=== PATIENT | male | born 2005 | race Caucasian/White ===

== ENCOUNTER 2024-11-25 20:49 | Emergency (ER) | payer MEDICAID, SELFPAY ==
--- OUTSIDE RECORDS SUMMARY | 2021-04-22 06:00 | XMS_ITS | Continuity of Care Document ---
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 Name Role Phone Unavailable Unavailable Unavailable Medications Medication Instructions Dosage Effective Dates (start - stop) Status Comments fluoxetine 10 mg tablet - Ac tive propranolol 20 mg tablet - A ctive methocarbamol 750 mg tablet - Active naproxen 500 mg tablet - Act bianca Procedures Procedure Date INTERMEDIATE OUTPT CONSULT ECG GLOBAL ECHO, TT W/SPECTRAL AND COLOR DOPPLER De ECHO, TT W/SPECTRAL AND COLOR DOPPLER De Advance Directives Directive Yes / No Effective Date File Name Resuscitation Not Answered N/A N/A Life Support Not Answered N/A N/A Intubation Not Answered N/A N/A Antibiotics Not Answered N/A N/A IV Fluid Support Not Answered N/A N/A Tube Feed Not Answered N/A N/A Other Directive N/A N/A WARNING:The information contained in this section is historical and is provided for information only and does not constitute a legal document or any assurance that the information is still accurate. Please verify the information with the wilson of the legal document before using it for clinical purposes. Encounters Encounter Description Practice Location Reason(s) For Visit Diagnoses Date Provider Providers Copied on Encounter INTERMEDIATE OUTPT CONSULT [facility], [address], [place], [address], [place] tel:[phone] [employer] [facility] PalpitationsBe nign Essential HypertensionOb esity (morbid)BMI Pediatric, 95% and above for age No Information Referring Provider: KELLI PERALES, [address] [place], [address]. tel:[phone] Family History Family Member Type Diagnosis Age At Onset No Information Payers Payer name Insurance type Covered constitution party ID Authoriza tiiain(s) [facility] [id number] Social History Type Description Quantity Date Captured Comments Alcohol Use Details Unknown Caffeine Use Details Unknown Tobacco Use Status No Information Smoking Status No Information Sex Male Vital Signs Date / Time: Height Weight BMI Pulse Rate Blood Pressure Temperature Respiratory Rate Body Surface Area Head Circumference BMI percentile Pulse Ox Inhaled Ox 12:27 PM 69.00 in 108.862 kg (240.00 lbs) 35.5 0 kg/m eter (2) 24 /min 2.30 meter(2) 99 Chief Complaint And Reason For Visit No Information History Of Present Illness Encounter Date Complaint History Of Prese nt Illness No Information Instructions Date Instruction Additional Infor mation No Information Assessments Type Assessment Date No Information
[2024-11-25 20:49] VITALS: BP 135/82; PULSE 73; RESP 18; TEMP 36.6; O2SAT 98; BMI 32.6
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
--- NOTE | 2024-11-25 20:58 | XRR_ITS ---
PROCEDURE INFORMATION: Exam: XR Abdomen Exam date and time: 11/25/2024 9:11 PM Age: 19 years old Clinical indication: Constipation TECHNIQUE: Imaging protocol: Radiologic exam of the abdomen. Views: Frontal supine view of the abdomen. 1 View. COMPARISON: No relevant prior studies available. FINDINGS: Gastrointestinal tract: Large volume of stool throughout the colon, consistent with provided history. No bowel dilation. No obstruction. No pneumatosis. No free air. Bones/joints: Unremarkable. XR/XR KUB 24068 IMPRESSION: Large colonic stool burden consistent with provided history of constipation.
--- NOTE | 2024-11-25 21:06 | W.ED.ABDPA2 ---
HPI - Abdominal Pain General: Chief Complaint: Abdominal Pain Stated Complaint: abd pain, constipated Time Seen by Provider: 11/25/24 20:59 Source: patient Mode of arrival: ambulatory Limitations: no limitations History of Present Illness: 19-year-old male states has had a history of constipation states he has not had a bowel movement in 4 days states he feels like he has a ball that he is having hard time passing. Denies any severe abdominal pain denies any vomiting he has tried Colace with no relief. Associated Symptoms: Reports constipation; Denies chills, diarrhea, fever(s), nausea and vomiting Related Data Previous Rx's ?Medication ?Instructions ?Recorded polyethylene glycol 3350 17 gram 17 g PO DAILY PRN constipation #14 11/25/24 oral powder packet (Miralax) ea Review of Systems Const: Denies: fever(s), chills, body aches or change in appetite ENMT: Denies: throat pain or dental pain Card: Denies: chest pain Resp: Denies: dyspnea GI: Reports: constipation; Denies: abdominal pain, nausea, vomiting or diarrhea Musc: Denies: neck pain or back pain Skin/Breast: Denies: rash Neuro: Denies: headache(s) Physical Exam Const: COMMON NORMALS: no acute distress, patient oriented x3 and healthy appearing HENMT: COMMON NORMALS: normocephalic and atraumatic HEAD & SCALP: normocephalic and atraumatic Eye: COMMON NORMALS: conjunctivae normal CONJUNCTIVA: Yes conjunctivae normal Neck/C-Spine: COMMON NORMALS: full ROM and supple Chest: COMMONS NORMALS: normal inspection of the chest Resp: COMMON NORMALS: normal respiratory effort Cardio: COMMON NORMALS: regular rate RATE: regular rate GI: COMMON NORMALS: Normal to inspection, nondistended, normoactive bowel sounds present, Soft to palpation, non-tender and no masses PALPATION: Yes Soft to palpation Extremity: COMMON NORMALS: normal to inspection and full ROM Neuro: COMMON NORMALS: patient oriented x3, moves all extremities and no focal motor deficits Psych: COMMON NORMALS: mental status grossly normal, Normal thought process present and cooperative THOUGHT PROCESS: Normal thought process present Skin: COMMON NORMALS: no rashes or lesions noted and no wounds GENERAL SKIN EXAM: no rashes or lesions noted Course Vital Signs: Vital signs: Vital Signs Temperature 97.9 F 11/25/24 20:49 Pulse Rate 73 11/25/24 20:49 Respiratory Rate 18 11/25/24 20:49 Blood Pressure 135/82 11/25/24 20:49 Pulse Oximetry 98 11/25/24 20:49 Oxygen Delivery Me thod Room Air 11/25/24 20:49 MDM - Abdominal Pain Medical Decision Making Patient presents for constipation no signs of obstruction did give him suppository along with lactulose we will discharge him with prescription for MiraLAX if he is unable to have a bowel movement he is to return he understands agrees plan Medical Records I reviewed the patient's medical records. XR interpretation done by ED provider, pending radiology final review ED provider radiology interpretation(s): X-ray KUB constipation Discharge Plan Discharge Patient Disposition: Home Clinical Impression: Constipation Condition: Stable Prescriptions: New polyethylene glycol 3350 [Miralax] 17 gram powder in packet 17 g PO DAILY PRN (Reason: constipation) Qty: 14 0RF Discharge Orders: Discharge ED (Routine); Ordered 11/25/24 Ordered By: Wayne Loco Discharge Diet: Advance as tolerated Discharge Activity: Resume usual activity Patient Instructions: Constipation (ED) Print Language: Northern Irish Coding Level of Care Code ED Hardware Sales Assistant for Jazmín Curtis
[2024-11-25 21:27] VITALS: PULSE 75; O2SAT 97
[2024-11-25] MEDS: lactulose oral liq 20 gm/30 mL UDC 30 GM PO (21:33)
[2024-11-25 22:26] VITALS: BP 127/76; PULSE 69; O2SAT 98
== END 2024-11-25 22:00 | disposition home or self-care (01) ==
PROVIDERS: Emergency Provider Emergency Medicine
DX: K59.00 Constipation, unspecified (principal)
CPT/HCPCS: 74018; 99283; J9999